=== PATIENT | male | born 1995 | race Caucasian/White ===

== ENCOUNTER 2019-12-25 08:46 | Emergency (ER) | payer SELFPAY ==
--- NOTE | 2019-12-25 11:18 | ER Document Report ---
ED General - General Chief Complaint: Dental Injury Stated Complaint: JAW SWOLLEN-RIGHT Time Seen by Provider: 12/25/19 09:54 TRAVEL OUTSIDE OF THE [place] IN LAST 30 DAYS: No - HPI Notes: Patient is a 24-year-old male who presents the emergency department for evaluation of facial pain and swelling, dental pain. He states he believes his right wisdom teeth is coming in. He states he is noticed some blood in the area. He has some swelling to his face that he noted this morning. No fevers or chills. No nausea or vomiting. No swelling under his tongue. - Related Data Home Medications: None Past Medical History - General Information source: Patient - Social History Smoking Status: Current Some Day Smoker Chew tobacco use (# tins/day): No Frequency of alcohol use: Social Drug Abuse: Marijuana Family History: Reviewed & Not Pertinent Patient has suicidal ideation: No Patient has homicidal ideation: No EENT Medical History: Reports: Other - History of mandibular fracture on the left - Immunizations Hx Diphtheria, Pertussis, Tetanus Vaccination: Yes Review of Systems - Review of Systems EENT: See HPI -: Yes All other systems reviewed and negative Physical Exam - Vital signs Vitals: Temp Pulse Resp BP Pulse Ox 98 F 56 L 16 155/94 H 100 12/25/19 08:51 12/25/19 08:51 12/25/19 08:51 12/25/19 08:51 12/25/19 08:51 - Notes Notes: Is a 24-year-old male who appears his stated age, no acute distress. Head is normocephalic and atraumatic, pupils are equal round, reactive to light. Onychosis moist. Examination of the dentition yields overall good condition. His right most posterior molar is starting to erupt. He has some overlying fluctuance and regional swelling the transmits out to the mandible. Some mild overlying calor but no erythema or induration is noted. No sublingual swelling. No submandibular adenopathy. Heart is regular rate and rhythm without murmur, lungs are clear to auscultation bilaterally. Course - Re-evaluation Re-evalutation: 12/25/19 11:21 Patient presents to the emergency department for evaluation. His findings are most consistent with a dental abscess. He is given penicillin, Naprosyn prescriptions. He is told he needs to see a dentist as soon as possible. He voiced understanding to this. He understands if he develops difficulty speaking, swallowing, or breathing he needs to return immediately to the ED for further evaluation. - Vital Signs Vital signs: Temp Pulse Resp BP Pulse Ox 98 F 56 L 16 155/94 H 100 12/25/19 08:51 12/25/19 08:51 12/25/19 08:51 12/25/19 08:51 12/25/19 08:51 Discharge - Discharge Clinical Impression: Dental abscess Condition: Stable Disposition: HOME, SELF-CARE Instructions: Abscess ([facility]), Penicillin V K ([facility]) Additional Instructions: You need to see a dentist as soon as possible. Take antibiotics as prescribed. Anti-inflammatories as directed, with food. If you develop increased swelling, difficulty breathing or swallowing, or any other new or concerning symptoms, please return immediately to the emergency permit for evaluation. Prescriptions: RX: Naproxen 500 mg PO BID #20 tablet. Penicillin V Potassium [Penicillin Vk 500 mg Tablet] 500 mg PO BID #20 tablet
[2019-12-25 11:28] VITALS: BP 134/84
== END 2019-12-25 11:27 | disposition home or self-care (01) ==
LOC: ER 08:46
DX: K04.7 Periapical abscess without sinus (principal); R68.84 Jaw pain; R51 Headache; F17.200 Nicotine dependence, unspecified, uncomplicated
CPT/HCPCS: 99283